=== PATIENT | male | born 1990 | race African-American/Black ===

== ENCOUNTER 2020-03-25 08:14 | Emergency (ER) | payer OTHER, SELFPAY ==
[2020-03-25 08:30] VITALS: BP 127/77; PULSE 86; RESP 16; TEMP 37; O2SAT 100
[2020-03-25 08:53] LABS: Basophils Percent Auto 0.8 % (0.2-1.2); Eosinophils Absolute Auto 0.3 K/mm3 (0-0.3); Eosinophils Percent Auto 7.5 % (0-4.4); Hematocrit 39.5 % (42.0-52.0); Hemoglobin 13.3 g/dL (14.0-18.0); Lymphocytes Percent Auto 43.9 % (18.3-44.2); Mean Corpuscular HGB Conc 33.7 g/dl (32-36); Mean Corpuscular Hemoglobin 29.8 pg (26-34); Mean Corpuscular Volume 88.4 fl (80-100); Mean Platelet Volume 10.3 fl (7.4-10.4); Monocytes Absolute Auto 0.4 K/mm3 (0.1-0.6); Monocytes Percent Auto 11.1 % (2.6-8.5); Neutrophils Absolute Auto 1.4 K/mm3 (1.3-6.7); Neutrophils Percent Auto 36.7 % (45.5-73.1); Platelet Count Result 219 k/mm3 (150-375); Red Blood Count 4.47 M/mm3 (4.6-6.20); Red Cell Distribution Width 13.2 % (11.5-14.5); White Blood Count 3.9 K/mm3 (4.5-10.0)
--- NOTE | 2020-03-25 09:02 | ED.ABDPAIN ---
HPI - Abdominal Pain General Chief Complaint: Abdominal Pain Stated Complaint: abd pain/vomiting Time Seen by Provider: 03/25/20 08:21 History of Present Illness HPI narrative: Patient is a 29-year-old male who presents ER with epigastric pain. Patient has had this for 5 days. He was seen at [facility] and diagnosed with low potassium after having some muscle cramping. They felt his potassium was low due to the fact that he had been vomiting earlier in the week. Reports she is having liquid yellow stools as well. Began having increased discomfort yesterday evening with nausea so he went to [place] but cannot be seen due to long wait time. He then decided to present here this morning. No fevers or chills or sweats. No known sick contacts. No loss of smell or taste. Related Data Allergies Allergy/AdvReac Type Severity Reaction Status Date / Time No Known Allergies Allergy Verified 03/25/20 08:59 Review of Systems Review of Systems: All systems reviewed & are unremarkable except as noted in HPI and below Constitutional: Constitutional: Denies chills, Denies fever(s) and Denies weakness ENT: Denies dizziness and Denies sore throat Gastrointestinal: Gastrointestinal: Reports abdominal pain, Denies bloating, Denies heartburn, Reports diarrhea, Reports nausea and Reports vomiting PMFSH Past Medical History Medical History (Updated 03/25/20 @ 10:39 by Klever Churchill MD) Healthy adult male Surgical History Surgical History (Updated 03/25/20 @ 09:04 by Klever Churchill MD) No history of previous surgery Social History Social History (Updated 03/25/20 @ 09:05 by Klever Churchill MD) Smoking status: Current every day smoker Gender identity (if verbalized by the patient): Male Exam Narrative: Exam Narrative: GENERAL: Well-appearing, well-nourished, and in no acute distress. HEAD: Normocephalic, atraumatic. CHEST: Clear to auscultation. No respiratory distress. HEART: Regular rate and rhythm. Normal peripheral pulses. ABDOMEN: Soft, nontender, nondistended, normal active bowel sounds. EXTREMITIES: Normal range of motion. No edema. SKIN: Warm, dry, no rash. NEURO: Alert and oriented x3. PSYCH: Normal mood and affect. Course Course Emergency Course: Hydrated, p.o. challenge, discharge home. Vital Signs Vital signs: Vital Signs Temperature 98.6 F 03/25/20 08:30 Pulse Rate 86 03/25/20 08:30 Respiratory Rate 16 03/25/20 08:30 Blood Pressure 127/77 03/25/20 08:30 Pulse Oximetry 100 03/25/20 08:30 Temperature 98.6 F 03/25/20 08:30 Pulse Rate 86 03/25/20 08:30 Respiratory Rate 16 03/25/20 08:30 Blood Pressure 127/77 03/25/20 08:30 Pulse Oximetry 100 03/25/20 08:30 MDM - Abdominal Pain Lab Data Result diagrams: 03/25/20 08:41 03/25/20 09:03 Labs: Lab Results 03/25/20 03/25/20 03/25/20 Range/Units 08:41 09:03 09:45 WBC 3.9 L (4.5-10.0) K/mm3 RBC 4.47 L (4.6-6.20) M/mm3 Hgb 13.3 L (14.0-18.0) g/dL Hct 39.5 L (42.0-52.0) % MCV 88.4 (80-100) fl MCH 29.8 (26-34) pg MCHC 33.7 (32-36) g/dl RDW 13.2 (11.5-14.5) % Plt Count 219 (150-375) k/mm3 MPV 10.3 (7.4-10.4) fl Immature Gran % (Auto) 0.0 (0-0.5) % Neut % (Auto) 36.7 L (45.5-73.1) % Lymph % (Auto) 43.9 (18.3-44.2) % [place] % (Auto) 11.1 H (2.6-8.5) % Eos % (Auto) 7.5 H (0-4.4) % Baso % (Auto) 0.8 (0.2-1.2) % Lymph # (Auto) 1.70 (0.9-3.2) K/mm3 [place] # (Auto) 0.4 (0.1-0.6) K/mm3 Eos # (Auto) 0.3 (0-0.3) K/mm3 Baso # (Auto) 0.0 (0.0-0.1) K/mm3 Abs Immat Gran (auto) 0.00 (0.00-0.031) K/mm3 Absolute Neuts (auto) 1.4 (1.3-6.7) K/mm3 Absolute Nucleated RBC 0.0 (0.0-0.012) K/mm3 Nucleated RBC % 0.0 (0.0-0.2) % Sodium 141 (137-145) mmol/L Potassium 3.8 (3.4-5.0) mmol/L Chloride 105 (98-107) mmol/L Carbon Dioxide 30 (22-30) mmol/L Anion G
[2020-03-25] MEDS: SODIUM CHLORIDE 0.9% IV 1,000 ML 999 ML IV CONT (09:05)
[2020-03-25] MEDS: ONDANSETRON INJ 4 MG/2 ML VIAL IV PUSH (09:06)
[2020-03-25 09:40] LABS: Alanine Aminotransferase 10 U/L (4-50); Albumin Level 4.2 g/dL (3.5-5.1); Alkaline Phosphatase 44 U/L (38-126); Anion Gap 6 mmol/L (8-16); Aspartate Amino Transferase 22 U/L (17-59); Bilirubin,Total 0.6 mg/dL (0.2-1.3); Blood Urea Nitrogen 13 mg/dL (9-20); Calcium 9.2 mg/dL (8.4-10.2); Carbon Dioxide 30 mmol/L (22-30); Chloride 105 mmol/L (98-107); Estimated CRCL calculation 120 ml/min; Estimated Glomerular Filt Rate > 60; Glucose 100 mg/dL (75-110); Lipase 84 U/L (23-300); Potassium 3.8 mmol/L (3.4-5.0); Sodium 141 mmol/L (137-145)
[2020-03-25 10:00] LABS: Add Urine Microscopic? YES; Amorphous Sediment Urine Few; Appearance Urine Cloudy (Clear); Bacteria Urine Trace /hpf; Bilirubin Urine Negative (Negative); Blood Urine Negative (Negative); Color Urine Yellow (Yellow); Glucose Urine UA Negative (Negative); Ketones Urine Negative (Negative); Leukocyte Esterase Ur Negative LEU/UL (Negative); Mucus Urine Moderate /lpf; Nitrate Urine Negative (Negative); Protein Urine 2+ mg/dL (Negative); Specific Grav Ur 1.026 (1.001-1.035); Squamous Epithelial Cell Urine Rare /hpf (Few); Urobilinogen Urine Negative mg/dL (<2.0)
[2020-03-25 10:05] VITALS: BP 117/69; PULSE 63; RESP 18; O2SAT 99
--- NOTE | 2020-03-25 10:20 | PC.NURSE ---
Pt states abd pain is gone, and no longer has nausea. Pt given water po.
--- NOTE | 2020-03-25 10:42 | PC.NURSE ---
Pt has kept water down, and states no longer has abdominal pain. Dr. Churchill made aware.
== END 2020-03-25 10:51 | disposition home or self-care (01) ==
PROVIDERS: Emergency Provider Emergency Medicine
DX: K52.9 Noninfective gastroenteritis and colitis, unspecified (principal); F17.200 Nicotine dependence, unspecified, uncomplicated
CPT/HCPCS: 11720; 36415; 80053; 81001; 83690; 85025; 96361; 96374; 99284; J2405; J7030

== ENCOUNTER 2020-03-25 18:08 | Emergency (ER) | payer OTHER, SELFPAY ==
--- NOTE | ~2020-03-25 | CT_ITS ---
EXAMINATION: CT abdomen pelvis w con DATE: 03/25/2020 20:10 INDICATION: Abdominal pain. Nausea and vomiting. TECHNIQUE: Computed tomography (CT) of the abdomen and pelvis was performed with 100 mL Omnipaque 350 intravenous contrast. Automated exposure control and iterative reconstruction technique were employe d. The dose-length product was 230.79 mGy-cm. COMPARISON: None. FINDINGS: The visualized portions of the lung bases are clear without pneumonia or pleural effusion. The heart size is normal. No pericardial effusion. The liver, gallbladder, spleen, pancreas, adrenal glands, and kidneys are normal. There are no dilated loops of bowel. The appendix is normal. There ar e no pathologically enlarged lymph nodes. There is no free intraperitoneal fluid. The bones are unre markable. IMPRESSION: 1. No etiology for the patient's symptoms. Reviewed, dictated and finalized at location A. H ASSOCIATE
[2020-03-25 18:26] VITALS: BP 123/74; PULSE 74; RESP 16; TEMP 36.3; O2SAT 100
[2020-03-25 19:02] LABS: Basophils Percent Auto 0.7 % (0.2-1.2); Eosinophils Absolute Auto 0.1 K/mm3 (0-0.3); Hematocrit 38.9 % (42.0-52.0); Hemoglobin 13.2 g/dL (14.0-18.0); Immature Granulocyte Absolute 0.01 K/mm3 (0.00-0.031); Immature Granulocyte Percent A 0.2 % (0-0.5); Lymphocytes Absolute Auto 1.49 K/mm3 (0.9-3.2); Lymphocytes Percent Auto 27.3 % (18.3-44.2); Mean Corpuscular HGB Conc 33.9 g/dl (32-36); Mean Corpuscular Hemoglobin 29.9 pg (26-34); Mean Corpuscular Volume 88.2 fl (80-100); Mean Platelet Volume 9.8 fl (7.4-10.4); Monocytes Absolute Auto 0.4 K/mm3 (0.1-0.6); Monocytes Percent Auto 8.1 % (2.6-8.5); Neutrophils Absolute Auto 3.4 K/mm3 (1.3-6.7); Neutrophils Percent Auto 61.7 % (45.5-73.1); Platelet Count Result 196 k/mm3 (150-375); Red Blood Count 4.41 M/mm3 (4.6-6.20); White Blood Count 5.5 K/mm3 (4.5-10.0)
[2020-03-25] MEDS: diphenhydrAMINE HCl INJ 50 MG/ML VIAL 25 MG IV PUSH (19:04)
[2020-03-25] MEDS: FAMOTIDINE 20 MG/2 ML VIAL IV PUSH (19:05)
[2020-03-25] MEDS: METOCLOPRAMIDE HCL INJ 10 MG/2 ML VIAL IV PUSH (19:05)
[2020-03-25] MEDS: SODIUM CHLORIDE 0.9% IV 1,000 ML 999 ML IV CONT (19:05)
[2020-03-25 19:17] LABS: Alanine Aminotransferase 11 U/L (4-50); Albumin Level 4.4 g/dL (3.5-5.1); Alkaline Phosphatase 46 U/L (38-126); Anion Gap 6 mmol/L (8-16); Aspartate Amino Transferase 22 U/L (17-59); Bilirubin,Total 0.8 mg/dL (0.2-1.3); Blood Urea Nitrogen 10 mg/dL (9-20); Calcium 9.2 mg/dL (8.4-10.2); Carbon Dioxide 28 mmol/L (22-30); Chloride 107 mmol/L (98-107); Estimated CRCL calculation 136 ml/min; Estimated Glomerular Filt Rate > 60; Glucose 97 mg/dL (75-110); Lipase 47 U/L (23-300); Potassium 4.2 mmol/L (3.4-5.0); Sodium 141 mmol/L (137-145)
--- NOTE | 2020-03-25 19:22 | ED.GENADULT ---
HPI - General Adult General Chief complaint: Nausea/Vomiting/Diarrhea Stated complaint: N/V X1D 2ND VISIT TODAY Time Seen by Provider: 03/25/20 18:37 Source: patient Mode of arrival: ambulatory Limitations: no limitations History of Present Illness HPI narrative: Patient is a 29-year-old male who returns back to emergency department after being evaluated this morning for nausea and vomiting diarrhea had unremarkable evaluation was sent home with his nausea medication notes that he continues to have nausea and vomiting despite the medication with discomfort in the upper abdomen patient denies sent contacts patient on arrival with family appears uncomfortable but in no distress Related Data Allergies Allergy/AdvReac Type Severity Reaction Status Date / Time No Known Allergies Allergy Verified 03/25/20 08:59 Review of Systems Review of Systems: All systems reviewed & are unremarkable except as noted in HPI and below PMFSH Past Medical History Medical History Healthy adult male Surgical History Surgical History No history of previous surgery Social History Social History Smoking status: Current every day smoker Gender identity (if verbalized by the patient): Male Exam Narrative: Exam Narrative: GENERAL: Well-appearing, well-nourished, and in no acute distress. HEAD: Normocephalic, atraumatic. EYES: PERRLA and EOMI. ENT: Nares clear, no rhinorrhea or epistaxis. Mucous membranes moist. CHEST: Clear to auscultation. No respiratory distress. No wheezes rales or rhonchi HEART: Regular rate and rhythm. No murmur heard. Normal peripheral pulses. ABDOMEN: Soft, tenderness in the upper quadrants of the abdomen no rebound or guarding, nondistended, normal active bowel sounds. EXTREMITIES: Normal range of motion. No edema. SKIN: Warm, dry, no rash. NEURO: No focal deficits. Alert and oriented x3. PSYCH: Normal mood and affect. Course Course Emergency Course: Patient in the room in no distress aware of case findings treatment plan diagnosis agreeing to follow-up as instructed with primary care patient with no high risk changes in the blood work or imaging patient able to tolerate p.o. intake Vital Signs Vital signs: Vital Signs Temperature 97.4 F L 03/25/20 18:26 Pulse Rate 74 03/25/20 18:26 Respiratory Rate 16 03/25/20 18:26 Blood Pressure 123/74 03/25/20 18:26 Pulse Oximetry 100 03/25/20 18:26 Temperature 97.4 F L 03/25/20 18:26 Pulse Rate 74 03/25/20 18:26 Respiratory Rate 16 03/25/20 18:26 Blood Pressure 123/74 03/25/20 18:26 Pulse Oximetry 100 03/25/20 18:26 Medical Decision Making MDM Narrative Medical decision making narrative: Patient with vomiting of unknown etiology afebrile nontoxic-appearing in no distress Vital Signs Vital Signs: Vital Signs Temperature 97.4 F L 03/25/20 18:26 Pulse Rate 74 03/25/20 18:26 Respiratory Rate 16 03/25/20 18:26 Blood Pressure 123/74 03/25/20 18:26 Pulse Oximetry 100 03/25/20 18:26 Temperature 97.4 F L 03/25/20 18:26 Pulse Rate 74 03/25/20 18:26 Respiratory Rate 16 03/25/20 18:26 Blood Pressure 123/74 03/25/20 18:26 Pulse Oximetry 100 03/25/20 18:26 Lab Data Result diagrams: 03/25/20 18:55 03/25/20 18:55 Labs: Lab Results 03/25/20 03/25/20 Range/Units 18:55 18:55 WBC 5.5 (4.5-10.0) K/mm3 RBC 4.41 L (4.6-6.20) M/mm3 Hgb 13.2 L (14.0-18.0) g/dL Hct 38.9 L (42.0-52.0) % MCV 88.2 (80-100) fl MCH 29.9 (26-34) pg MCHC 33.9 (32-36) g/dl RDW 13.0 (11.5-14.5) % Plt Count 196 (150-375) k/mm3 MPV 9.8 (7.4-10.4) fl Immature Gran % (Auto) 0.2 (0-0.5) % Neut % (Auto) 61.7 (45.5-73.1) % Lymph % (Auto) 27.3 (18.3-44.2) % [place] % (Auto) 8.1 (2.6-8.5)
[2020-03-25 20:44] VITALS: BP 124/76; PULSE 75; RESP 18; O2SAT 100
== END 2020-03-25 20:45 | disposition home or self-care (01) ==
PROVIDERS: Emergency Medicine Emergency Medical Services; Emergency Provider Emergency Medicine
DX: R11.2 Nausea with vomiting, unspecified (principal); F17.200 Nicotine dependence, unspecified, uncomplicated
CPT/HCPCS: 11720; 36415; 74177; 80053; 81001; 83690; 85025; 96361; 96374; 96375; 99284; J1200; J2405; J2765; J7030; Q9967

== ENCOUNTER 2020-04-03 13:31 | Emergency (ER) | payer OTHER, SELFPAY ==
[2020-04-03 13:28] VITALS: BP 107/67; PULSE 64; RESP 18; TEMP 37.2; O2SAT 100
--- NOTE | 2020-04-03 13:54 | ED.GENADULT ---
HPI - General Adult General Chief complaint: Abdominal Pain <Kyle Naranjo PA-C - Last Filed: 04/03/20 15:49> Stated complaint: abd cramping <Kyle Naranjo PA-C - Last Filed: 04/03/20 15:49> Time Seen by Provider: 04/03/20 13:36 <Kyle Naranjo PA-C - Last Filed: 04/03/20 15:49> Source: patient, EMS and old records reviewed <Kyle Naranjo PA-C - Last Filed: 04/03/20 15:49> Mode of arrival: EMS <Kyle Naranjo PA-C - Last Filed: 04/03/20 15:49> Limitations: no limitations <Kyle Naranjo PA-C - Last Filed: 04/03/20 15:49> History of Present Illness HPI narrative: Patient is a 29-year-old male who presents to emergency department for evaluation of continued abdominal pain nausea and vomiting patient was seen at [place] this morning had evaluation given fluids discharged home had recurrence of symptoms came back but was not seen called an ambulance and was brought to [place] patient had had a similar occurrence over a week ago and evaluation and imaging which was unremarkable was discharged home with medication. Patient notes vomiting and generalized abdominal pain denies any diarrhea URI symptoms or other complaints and does not appear uncomfortable or in distress upon arrival <Kyle Naranjo PA-C - Last Filed: 04/03/20 15:49> Related Data Home medications: Home Medications Medication Instructions Recorded Confirmed dicyclomine 10 mg PO TID PRN 04/03/20 <Kyle Naranjo PA-C - Last Filed: 04/03/20 15:49> Allergies/adverse reactions: Allergies Allergy/AdvReac Type Severity Reaction Status Date / Time acetaminophen [From Tylenol] Allergy Swelling Verified 04/03/20 13:34 <Kyle Naranjo PA-C - Last Filed: 04/03/20 15:49> Review of Systems Review of Systems: All systems reviewed & are unremarkable except as noted in HPI and below <Kyle Naranjo PA-C - Last Filed: 04/03/20 15:49> PMFSH Past Medical History Medical History: Medical History Healthy adult male <Kyle Naranjo PA-C - Last Filed: 04/03/20 15:49> Surgical History Surgical History: Surgical History No history of previous surgery <Kyle Naranjo PA-C - Last Filed: 04/03/20 15:49> Social History Social History: Social History Smoking status: Current every day smoker Gender identity (if verbalized by the patient): Male <Kyle Naranjo PA-C - Last Filed: 04/03/20 15:49> Exam Narrative: Exam Narrative: GENERAL: Well-appearing, well-nourished, and in no acute distress. HEAD: Normocephalic, atraumatic. EYES: PERRLA and EOMI. ENT: Nares clear, no rhinorrhea or epistaxis. Mucous membranes moist. CHEST: Clear to auscultation. No respiratory distress. No wheezes rales or rhonchi HEART: Regular rate and rhythm. No murmur heard. Normal peripheral pulses. ABDOMEN: Soft, generalized tenderness, nondistended EXTREMITIES: Normal range of motion. No edema. SKIN: Warm, dry, no rash. NEURO: No focal deficits. Alert and oriented x3. PSYCH: Normal mood and affect. <Kyle Naranjo PA-C - Last Filed: 04/03/20 15:49> Course Course Emergency Course: Patient in the room no distress feeling better will follow with GI and primary care was given medications with resolution of symptoms <Kyle Naranjo PA-C - Last Filed: 04/03/20 15:49> Vital Signs Vital signs: Vital Signs Temperature 99 F 04/03/20 13:28 Pulse Rate 64 04/03/20 13:28 Respiratory Rate 18 04/03/20 13:28 Blood Pressure 107/67 04/03/20 13:28 Pulse Oximetry 100 04/03/20 13:28 Temperature 99 F 04/03/20 14:25 Pulse Rate 77 04/03/20 15:20 Respiratory Rate 18 04/03/20 15:20 Blood Pressure 104/63 04/03/20 15:20 Pulse Oximetry 100 04/03/20 15:20 <Kyle Reid
[2020-04-03] MEDS: KETOROLAC 30 MG/ML VIAL (*BKC) IV PUSH (13:55)
[2020-04-03] MEDS: SODIUM CHLORIDE 0.9% IV 1,000 ML 999 ML IV CONT (13:55)
[2020-04-03] MEDS: FAMOTIDINE 20 MG/2 ML VIAL IV PUSH (13:55)
[2020-04-03] MEDS: ONDANSETRON INJ 4 MG/2 ML VIAL IV PUSH (13:55)
[2020-04-03 14:07] LABS: Basophils Percent Auto 0.7 % (0.2-1.2); Eosinophils Absolute Auto 0.2 K/mm3 (0-0.3); Eosinophils Percent Auto 2.9 % (0-4.4); Hematocrit 38.8 % (42.0-52.0); Hemoglobin 13.1 g/dL (14.0-18.0); Immature Granulocyte Absolute 0.01 K/mm3 (0.00-0.031); Immature Granulocyte Percent A 0.2 % (0-0.5); Lymphocytes Absolute Auto 1.59 K/mm3 (0.9-3.2); Lymphocytes Percent Auto 27.2 % (18.3-44.2); Mean Corpuscular HGB Conc 33.8 g/dl (32-36); Mean Corpuscular Hemoglobin 30.3 pg (26-34); Mean Corpuscular Volume 89.6 fl (80-100); Mean Platelet Volume 9.5 fl (7.4-10.4); Monocytes Absolute Auto 0.4 K/mm3 (0.1-0.6); Monocytes Percent Auto 7.4 % (2.6-8.5); Neutrophils Absolute Auto 3.6 K/mm3 (1.3-6.7); Neutrophils Percent Auto 61.6 % (45.5-73.1); Platelet Count Result 225 k/mm3 (150-375); Red Blood Count 4.33 M/mm3 (4.6-6.20); Red Cell Distribution Width 13.2 % (11.5-14.5); White Blood Count 5.8 K/mm3 (4.5-10.0)
[2020-04-03] MEDS: LORazepam INJ (*CRX) 2 MG/ML VIAL 1 MG IV PUSH (14:07)
[2020-04-03 14:09] LABS: Add Urine Microscopic? NO; Appearance Urine Clear (Clear); Bilirubin Urine Negative (Negative); Blood Urine Negative (Negative); Color Urine Straw (Yellow); Glucose Urine UA Negative (Negative); Ketones Urine Negative (Negative); Leukocyte Esterase Ur Negative LEU/UL (Negative); Nitrate Urine Negative (Negative); Protein Urine Negative (Negative); Specific Grav Ur 1.012 (1.001-1.035); Urobilinogen Urine Negative mg/dL (<2.0)
[2020-04-03 14:12] LABS: Alanine Aminotransferase 11 U/L (4-50); Alkaline Phosphatase 40 U/L (38-126); Anion Gap 3 mmol/L (8-16); Aspartate Amino Transferase 21 U/L (17-59); Bilirubin,Total 0.8 mg/dL (0.2-1.3); Blood Urea Nitrogen 7 mg/dL (9-20); Carbon Dioxide 27 mmol/L (22-30); Chloride 110 mmol/L (98-107); Estimated CRCL calculation 136 ml/min; Estimated Glomerular Filt Rate > 60; Glucose 98 mg/dL (75-110); Lipase 46 U/L (23-300); Potassium 4.2 mmol/L (3.4-5.0); Sodium 140 mmol/L (137-145)
[2020-04-03 14:25] VITALS: TEMP 37.2
[2020-04-03 15:20] VITALS: BP 104/63; PULSE 77; RESP 18; O2SAT 100
== END 2020-04-03 16:01 | disposition home or self-care (01) ==
PROVIDERS: Emergency Medicine Emergency Medical Services; Emergency Provider General Practice
DX: R10.9 Unspecified abdominal pain (principal); F17.200 Nicotine dependence, unspecified, uncomplicated
CPT/HCPCS: 36415; 80053; 81003; 83690; 85025; 96361; 96374; 96375; 99284; J1885; J2060; J2405; J7030

== ENCOUNTER 2020-08-09 07:50 | Emergency (ER) | payer OTHER, SELFPAY ==
--- NOTE | 2020-08-09 08:09 | ED.NAVMDI ---
HPI - Nausea/Vomiting/Diarrhea General Chief complaint: Abdominal Pain Stated complaint: abd pain Time Seen by Provider: 08/09/20 07:55 Source: patient Mode of arrival: ambulatory Limitations: no limitations History of Present Illness HPI Narrative: Patient is a 30-year-old male complaining of nausea vomiting accompanied by abdominal cramping x2 days. Patient states that he was seen at [place] last night for the same complaints. Patient describes his vomitus is nonbilious nonbloody. Patient claims that he has been having the symptoms on and off for the past 6 months and was seen here twice for it. Patient admits to smoking marijuana regularly. Related Data Home Medications Medication Instructions Recorded Confirmed dicyclomine 10 mg PO TID PRN 04/03/20 Allergies Allergy/AdvReac Type Severity Reaction Status Date / Time acetaminophen [From Tylenol] Allergy Swelling Verified 04/03/20 13:34 Review of Systems Review of Systems: All systems reviewed & are unremarkable except as noted in HPI and below Constitutional: Constitutional: Denies body ache(s), Denies chills, Denies excessive sweating, Denies fatigue, Denies fever(s), Denies headache(s), Denies lethargy, Denies malaise, Denies weakness and Denies weight loss Eyes: Eyes: Denies blurry vision, Denies change in vision and Denies loss of vision ENT: Denies dizziness, Denies ear discharge, Denies headache(s), Denies lip swelling, Denies epistaxis, Denies nasal congestion, Denies neck pain, Denies throat swelling and Denies tongue swelling Cardiovascular: Cardiovascular: Denies chest pain, Denies chest pain at rest, Denies chest pain with activity, Denies diaphoresis, Denies rapid heart rate, Denies edema, Denies irregular heart rhythm, Denies lightheadedness, Denies palpitations, Denies dyspnea and Denies dyspnea on exertion Respiratory: Respiratory: Denies chest congestion, Denies cough, Denies hemoptysis, Denies dyspnea and Denies dyspnea on exertion Gastrointestinal: Gastrointestinal: Denies melena, Denies hematochezia, Denies diarrhea and Denies hematemesis Musculoskeletal: Musculoskeletal: Denies abnormal gait, Denies deformity, Denies joint swelling, Denies limited range of motion, Denies neck pain and Denies numbness Neurologic: Denies Abnormal speech present, Denies abnormal gait, Denies confusion, Denies dizziness, Denies headache(s), Denies focal weakness, Denies loss of vision, Denies numbness, Denies Other visual disturbances, Denies Sensory deficit (Neuro) and Denies weakness Psychiatric: Psychiatric: Denies confusion, Denies depression, Denies auditory hallucinations, Denies homicidal ideation and Denies suicidal ideation Endocrine: Endocrine: Denies cold intolerance, Denies excessive sweating, Denies fatigue, Denies heat intolerance and Denies palpitations Hematologic/Lymphatic: Hematologic/Lymphatic: Denies easy bleeding and Denies easy bruising Allergic/Immunologic: Allergic/Immunologic: Denies lip swelling, Denies throat swelling and Denies tongue swelling PMFSH Past Medical History Medical History Healthy adult male Surgical History Surgical History No history of previous surgery Social History Social History Smoking status: Current every day smoker Gender identity (if verbalized by the patient): Male Comments Past medical history: None Family history: Negative for diabetes or hypertension Social history: Non-smoker no EtOH use, positive for drug use: Marijuana Exam Const: General: cooperative, healthy appearing, comfortable, no acute distress, well developed, alert and awake; No confusion Orientation/consciousness: oriented to person, oriented to place, oriented to time, patient oriented x3 and No confusion Limitations: no limitations HENMT: Head: normal to inspect
[2020-08-09 08:17] LABS: Basophils Absolute Auto 0.1 K/mm3 (0.0-0.1); Basophils Percent Auto 1.6 % (0.2-1.2); Eosinophils Absolute Auto 0.4 K/mm3 (0-0.3); Eosinophils Percent Auto 8.6 % (0-4.4); Hematocrit 41.3 % (42.0-52.0); Hemoglobin 14.2 g/dL (14.0-18.0); Lymphocytes Percent Auto 51.3 % (18.3-44.2); Mean Corpuscular HGB Conc 34.4 g/dl (32-36); Mean Corpuscular Hemoglobin 29.7 pg (26-34); Mean Corpuscular Volume 86.4 fl (80-100); Mean Platelet Volume 9.5 fl (7.4-10.4); Monocytes Absolute Auto 0.5 K/mm3 (0.1-0.6); Monocytes Percent Auto 10.5 % (2.6-8.5); Neutrophils Absolute Auto 1.2 K/mm3 (1.3-6.7); Platelet Count Result 205 k/mm3 (150-375); Red Blood Count 4.78 M/mm3 (4.6-6.20); Red Cell Distribution Width 13.2 % (11.5-14.5); White Blood Count 4.3 K/mm3 (4.5-10.0)
[2020-08-09] MEDS: SODIUM CHLORIDE 0.9% IV 1,000 ML 999 ML IV CONT ×2 (08:20→09:47)
[2020-08-09] MEDS: PROMETHAZINE HCL 25 MG/ML AMPUL 12.5 MG IV PUSH (08:21)
[2020-08-09] MEDS: ONDANSETRON INJ 4 MG/2 ML VIAL IV PUSH (08:21)
[2020-08-09 08:28] LABS: Alanine Aminotransferase 15 U/L (4-50); Albumin Level 4.7 g/dL (3.5-5.1); Alkaline Phosphatase 46 U/L (38-126); Anion Gap 7 mmol/L (8-16); Aspartate Amino Transferase 28 U/L (17-59); Bilirubin,Total 1.5 mg/dL (0.2-1.3); Blood Urea Nitrogen 16 mg/dL (9-20); Calcium 9.4 mg/dL (8.4-10.2); Carbon Dioxide 25 mmol/L (22-30); Chloride 108 mmol/L (98-107); Estimated Glomerular Filt Rate > 60; Glucose 87 mg/dL (75-110); Lipase 60 U/L (23-300); Potassium 3.4 mmol/L (3.4-5.0); Sodium 140 mmol/L (137-145)
[2020-08-09 08:30] VITALS: BP 98/53; PULSE 60; RESP 14; TEMP 36.7; O2SAT 99
[2020-08-09 08:57] VITALS: BP 100/61; PULSE 51; RESP 14; O2SAT 99
[2020-08-09 09:30] VITALS: BP 92/66; PULSE 61; RESP 14; O2SAT 99
[2020-08-09 10:00] VITALS: BP 105/57; PULSE 77; RESP 14; O2SAT 99
[2020-08-09 10:30] VITALS: BP 108/73; PULSE 56; RESP 14; O2SAT 99
--- NOTE | 2020-08-12 08:17 | PC.NURSE ---
LATE ENTRY This note is being entered to document information to the patient's record. The following information was omitted on [08/09/20], by [Domingo Case] LUISA stop time 0038.
== END 2020-08-09 10:40 | disposition home or self-care (01) ==
PROVIDERS: Emergency Provider Emergency Medicine; PCP Internal Medicine Infectious Disease
DX: R11.15 Cyclical vomiting syndrome unrelated to migraine (principal); F17.200 Nicotine dependence, unspecified, uncomplicated
CPT/HCPCS: 36415; 80053; 83690; 85025; 96361; 96374; 96375; 99284; J2405; J2550; J7030

== ENCOUNTER 2020-11-03 23:45 | Emergency (ER) | payer OTHER, SELFPAY ==
[2020-11-03 23:46] VITALS: BP 109/74; PULSE 105; RESP 18; TEMP 36.1; O2SAT 100
--- NOTE | 2020-11-03 23:55 | ED.DENTAL ---
HPI - Dental/Oral General Chief complaint: Dental/Oral Stated complaint: headache and toothache Time Seen by Provider: 11/03/20 23:54 Source: patient Mode of arrival: ambulatory Limitations: no limitations History of Present Illness HPI Narrative: 30-year-old with no major medical problems here with complaints of dental pain since last 4 hours. He states that he is having headache from the pain. He denies any fever or chills. MD Complaint: tooth pain Location: Tooth # (17) Onset (ago): hour(s) (4) Duration: constant Severity: moderate Relieving factors: nothing Treatment prior to arrival: none Related Data Allergies Allergy/AdvReac Type Severity Reaction Status Date / Time acetaminophen [From Tylenol] Allergy Swelling Verified 11/03/20 23:56 Review of Systems Review of Systems: All systems reviewed & are unremarkable except as noted in HPI and below Constitutional: Constitutional: Reports no additional constitutional complaints Eyes: Eyes: Reports no additional eye complaints ENT: Reports as per HPI Respiratory: Respiratory: Reports no additional respiratory complaints Gastrointestinal: Gastrointestinal: Reports no additional gastrointestinal complaints [facility] Past Medical History Medical History Healthy adult male Surgical History Surgical History No history of previous surgery Social History Social History Smoking status: Current every day smoker Gender identity (if verbalized by the patient): Male Sexual Orientation (if Verbalized by the Patient): Straight or Heterosexual Exam Narrative: Exam Narrative: GENERAL: Well-appearing, well-nourished, and in no acute distress. HEAD: Normocephalic, atraumatic. EYES: PERRLA and EOMI. ENT: Nares clear, no rhinorrhea or epistaxis. Mucous membranes moist. Dental caries #17 NECK: Supple. CHEST: Clear to auscultation. No respiratory distress. HEART: Regular rate and rhythm. No murmur heard. Normal peripheral pulses. EXTREMITIES: Normal range of motion. No edema. SKIN: Warm, dry, no rash. NEURO: No focal deficits. Alert and oriented x3. PSYCH: Normal mood and affect. Course Vital Signs Vital signs: Vital Signs Temperature 36.1 C L 11/03/20 23:46 Pulse Rate 105 H 11/03/20 23:46 Respiratory Rate 18 11/03/20 23:46 Blood Pressure 109/74 11/03/20 23:46 Pulse Oximetry 100 11/03/20 23:46 Temperature 36.1 C L 11/03/20 23:46 Pulse Rate 105 H 11/03/20 23:46 Respiratory Rate 18 11/03/20 23:46 Blood Pressure 109/74 11/03/20 23:46 Pulse Oximetry 100 11/03/20 23:46 Discharge Plan Discharge Clinical Impression: Dental caries Patient Disposition: Home, Self-Care Condition: Stable Instructions: Antibiotic Form, Toothache (ED) Prescriptions: New amoxicillin 875 mg tablet 875 mg PO Q12H Qty: 20 RF: 0 tramadol [Ultram] 50 mg tablet 50 mg PO Q6H PRN (Reason: pain) Qty: 20 RF: 0 Follow-up/Referrals: Lisa,Candi Quick [Primary Care Provider] - Stand Alone Forms: Work/School Release IP Time of Disposition: 00:03
[2020-11-04] MEDS: traMADol HCL (*CRX) 50 MG TABLET PO (00:02)
== END 2020-11-04 00:13 | disposition home or self-care (01) ==
LOC: ANHED 11-04 00:29
PROVIDERS: Emergency Provider Family Medicine; PCP Family Medicine
DX: K02.9 Dental caries, unspecified (principal); F17.210 Nicotine dependence, cigarettes, uncomplicated
CPT/HCPCS: 99283; A9270

== ENCOUNTER 2020-11-04 20:40 | Emergency (ER) | payer OTHER, SELFPAY ==
--- NOTE | ~2020-11-04 | CT_ITS ---
EXAMINATION: CT abdomen pelvis wo con DATE: 11/04/2020 22:26 INDICATION: Right flank pain TECHNIQUE: Computed tomography (CT) of the abdomen and pelvis was performed without intravenous contr ast. The dose-length product was 176.31 mGy-cm. Automated exposure control and iterative reconstructi on technique were employed. COMPARISON: CT dated 03/25/2020 FINDINGS: Lung bases are unremarkable. Heart size normal. No significant pleural or pericardial effus ion. No significant vascular abnormality. No lymphadenopathy. Nonobstructive bowel gas pattern. Jeanette l appendix. No there is a punctate 2 mm left renal stone. No ureteral stones or hydronephrosis. Bladd er is unremarkable. No acute osseous abnormality. IMPRESSION: 1. No acute abdominal abnormality. 2: Nonobstructing left nephrolithiasis. Reviewed, dictated and finalized at location A.
[2020-11-04 21:00] VITALS: BP 125/61; PULSE 64; RESP 18; TEMP 37; O2SAT 100
[2020-11-04 21:09] LABS: Basophils Percent Auto 0.7 % (0.2-1.2); Eosinophils Absolute Auto 0.4 K/mm3 (0-0.3); Eosinophils Percent Auto 8.8 % (0-4.4); Hematocrit 41.2 % (42.0-52.0); Hemoglobin 13.5 g/dL (14.0-18.0); Immature Granulocyte Absolute 0.01 K/mm3 (0.00-0.031); Immature Granulocyte Percent A 0.2 % (0-0.5); Lymphocytes Absolute Auto 1.63 K/mm3 (0.9-3.2); Lymphocytes Percent Auto 37.9 % (18.3-44.2); Mean Corpuscular HGB Conc 32.8 g/dl (32-36); Mean Corpuscular Hemoglobin 29.5 pg (26-34); Mean Corpuscular Volume 90.2 fl (80-100); Mean Platelet Volume 9.4 fl (7.4-10.4); Monocytes Absolute Auto 0.4 K/mm3 (0.1-0.6); Monocytes Percent Auto 10.2 % (2.6-8.5); Neutrophils Absolute Auto 1.8 K/mm3 (1.3-6.7); Neutrophils Percent Auto 42.2 % (45.5-73.1); Platelet Count Result 198 k/mm3 (150-375); Red Blood Count 4.57 M/mm3 (4.6-6.20); White Blood Count 4.3 K/mm3 (4.5-10.0)
[2020-11-04 21:19] LABS: Alanine Aminotransferase 11 U/L (4-50); Albumin Level 4.7 g/dL (3.5-5.1); Alkaline Phosphatase 42 U/L (38-126); Anion Gap 10 mmol/L (8-16); Aspartate Amino Transferase 21 U/L (17-59); Bilirubin,Total 0.8 mg/dL (0.2-1.3); Blood Urea Nitrogen 12 mg/dL (9-20); Calcium 9.5 mg/dL (8.4-10.2); Carbon Dioxide 25 mmol/L (22-30); Chloride 105 mmol/L (98-107); Estimated Glomerular Filt Rate > 60; Glucose 85 mg/dL (75-110); Lipase 45 U/L (23-300); Potassium 3.9 mmol/L (3.4-5.0); Sodium 140 mmol/L (137-145)
--- NOTE | 2020-11-04 22:16 | ED.GENADULT ---
HPI - General Adult General Chief complaint: Abdominal Pain Stated complaint: back/abd pain Time Seen by Provider: 11/04/20 22:03 History of Present Illness HPI narrative: Patient 30-year-old gentleman who presents the emergency department chief complaint of right flank pain. The patient reports that he started having flank pain today states that sharp radiates around to the right lower quadrant reports it is not worsened by anything nor is it improved by anything. Patient reports he was seen last night in the emergency department for a tooth infection and was given an antibiotic and started on tramadol. The patient reports the tramadol makes his stomach feel a little upset. Patient denies vomiting denies diarrhea. Related Data Allergies Allergy/AdvReac Type Severity Reaction Status Date / Time acetaminophen [From Tylenol] Allergy Swelling Verified 11/04/20 21:03 Review of Systems Review of Systems: Narrative: A 10 system review of systems was completed on the patient and is negative except for what is stated in the HPI. Nursing and ancillary documentation was reviewed. [facility] Past Medical History Medical History Healthy adult male Surgical History Surgical History No history of previous surgery Social History Social History Smoking status: Current every day smoker Gender identity (if verbalized by the patient): Male Exam Narrative: Exam Narrative: GENERAL: Well-appearing, well-nourished, and in no acute distress. HEAD: Normocephalic, atraumatic. EYES: PERRLA and EOMI. ENT: Nares clear, no rhinorrhea or epistaxis. Mucous membranes moist. NECK: Supple. CHEST: Clear to auscultation. No respiratory distress. HEART: Regular rate and rhythm. No murmur heard. Normal peripheral pulses. ABDOMEN: Soft, nontender, nondistended, normal active bowel sounds. EXTREMITIES: Normal range of motion. No edema. SKIN: Warm, dry, no rash. NEURO: No focal deficits. Alert and oriented x3. PSYCH: Normal mood and affect. Course Vital Signs Vital signs: Vital Signs Temperature 37.0 C 11/04/20 21:00 Pulse Rate 64 11/04/20 21:00 Respiratory Rate 18 07/08/21 21:00 Blood Pressure 125/61 11/04/20 21:00 Pulse Oximetry 100 11/04/20 21:00 Temperature 37.0 C 11/04/20 21:00 Pulse Rate 64 11/04/20 21:00 Respiratory Rate 18 11/04/20 21:00 Blood Pressure 125/61 11/04/20 21:00 Pulse Oximetry 100 11/04/20 21:00 Medical Decision Making Vital Signs Vital Signs: Vital Signs Temperature 37.0 C 11/04/20 21:00 Pulse Rate 64 11/04/20 21:00 Respiratory Rate 18 11/04/20 21:00 Blood Pressure 125/61 11/04/20 21:00 Pulse Oximetry 100 11/04/20 21:00 Temperature 37.0 C 11/04/20 21:00 Pulse Rate 64 11/04/20 21:00 Respiratory Rate 18 11/04/20 21:00 Blood Pressure 125/61 11/04/20 21:00 Pulse Oximetry 100 11/04/20 21:00 Lab Data Result diagrams: 11/04/20 21:04 11/04/20 21:04 Labs: Lab Results 11/04/20 11/04/20 Range/Units 21:04 21:04 WBC 4.3 L (4.5-10.0) K/mm3 RBC 4.57 L (4.6-6.20) M/mm3 Hgb 13.5 L (14.0-18.0) g/dL Hct 41.2 L (42.0-52.0) % MCV 90.2 (80-100) fl MCH 29.5 (26-34) pg MCHC 32.8 (32-36) g/dl RDW 13.0 (11.5-14.5) % Plt Count 198 (150-375) k/mm3 MPV 9.4 (7.4-10.4) fl Immature Gran % (Auto) 0.2 (0-0.5) % Neut % (Auto) 42.2 L (45.5-73.1) % Lymph % (Auto) 37.9 (18.3-44.2) % [place] % (Auto) 10.2 H (2.6-8.5) % Eos % (Auto) 8.8 H (0-4.4) % Baso % (Auto) 0.7 (0.2-1.2) % Lymph # (Auto) 1.63 (0.9-3.2) K/mm3 [place] # (Auto) 0.4 (0.1-0.6) K/mm3 Eos # (Auto) 0.4 H (0-0.3) K/mm3 Baso # (Auto) 0.0 (0.0-0.1) K/mm3 Abs Immat Gran (auto) 0.01 (0.00-0.031) K/mm3 Absolute Ne
[2020-11-04] MEDS: KETOROLAC 30 MG/ML VIAL (*BKC) IM (22:34)
== END 2020-11-04 22:57 | disposition home or self-care (01) ==
PROVIDERS: Emergency Provider Emergency Medicine; PCP Family Medicine
DX: R10.31 Right lower quadrant pain (principal); F17.200 Nicotine dependence, unspecified, uncomplicated
CPT/HCPCS: 36415; 74176; 80053; 83690; 85025; 96372; 99284; J1885

== ENCOUNTER 2020-11-08 04:45 | Emergency (ER) | payer OTHER, SELFPAY ==
[2020-11-08 04:58] VITALS: BP 123/83; PULSE 61; RESP 20; TEMP 36.6; O2SAT 100
--- NOTE | 2020-11-08 05:20 | ED.DENTAL ---
HPI - Dental/Oral General Chief complaint: Dental/Oral Stated complaint: Toothache Time Seen by Provider: 11/08/20 04:54 Source: RN notes reviewed History of Present Illness HPI Narrative: Patient presents to emergency department from home for dental pain. Patient states has been having pain in his left upper and lower molars for the past 1 week he was seen here on 03 November and at that time was started on antibiotics as well as ibuprofen and tramadol she is he woke approximate hour ago with severe pain in the left upper and lower tooth he states he tried taking ibuprofen and tramadol with minimal relief he denies any new trauma or injury states he has an appointment with a dentist today denies any fevers or chills ear pain or any other symptoms Related Data Allergies Allergy/AdvReac Type Severity Reaction Status Date / Time acetaminophen [From Tylenol] Allergy Swelling Verified 11/04/20 21:03 Review of Systems Review of Systems: Narrative: Gen.: Denies fevers or chills HEENT: See HPI Respiratory: Denies shortness of breath Abdomen: Denies abdominal pain nausea vomiting Neuro: Denies numbness, tingling, weakness Skin: Denies rash Endo: Denies DM PMFSH Past Medical History Medical History (Updated 11/08/20 @ 05:23 by Bayron Tovar DO) Healthy adult male Patient denies significant medical history Surgical History Surgical History No history of previous surgery Social History Social History Smoking status: Current every day smoker Gender identity (if verbalized by the patient): Male Exam Narrative: Exam Narrative: APPEARANCE: No acute distress, nontoxic, resting in bed HEENT: Normocephalic, atraumatic, TMs clear bilaterally, nares patent, oral mucosa moist, airway patent, tooth 16 and 17 are both carious and tender to palpation no erythema or fluctuance of the gum in this region no overlying swelling of the cheeks RESPIRATORY: No respiratory distress MUSCULOSKELETAl: Moves all extremities. NEURO: Awake and alert. Following commands, speech normal, no focal deficits SKIN:: Warm, dry. Normal Color PSYCHIATRIC: Normal affect/mood Course Course Emergency Course: Reviewed old records will give small amount of additional pain medication patient continued on his meds as he has disappointment today at 3 Patient took tramadol and ibuprofen approximate hour ago at home continues to have pain patient has both upper and lower pain and did not feel that doing double dental blocks is appropriate with patient having surgery later today patient is allergic to Tylenol so cannot give [place] will give small amount of oxycodone with patient previously taking tramadol will only give 2.5 mg Discussed with patient results of workup and diagnosis. Discussed need for follow-up with primary care, proper use of medication, and reasons to return to the emergency department. Patient understands and agrees to current treatment plan Vital Signs Vital signs: Vital Signs Temperature 97.9 F 11/08/20 04:58 Pulse Rate 61 11/08/20 04:58 Respiratory Rate 20 11/08/20 04:58 Blood Pressure 123/83 11/08/20 04:58 Pulse Oximetry 100 11/08/20 04:58 Temperature 97.9 F 11/08/20 04:58 Pulse Rate 61 11/08/20 04:58 Respiratory Rate 20 11/08/20 04:58 Blood Pressure 123/83 11/08/20 04:58 Pulse Oximetry 100 11/08/20 04:58 Discharge Plan Discharge Clinical Impression: Toothache Patient Disposition: Home, Self-Care Condition: Stable Instructions: Antibiotic Form, Toothache (ED) Additional Instructions: Return for increasing pain fever or any other symptoms or concern follow-up with your dentist at your scheduled appointment at 3 PM today for further treatment and evaluation Prescriptions: No Action ibuprofen 800 mg tablet 800 mg PO TID PRN (Reason: pain) Qty: 21 RF: 0 amoxicillin 875
[2020-11-08] MEDS: oxyCODONE HCL (*CRX) 2.5 MG TAB IR PO (05:35)
--- NOTE | 2020-11-08 05:52 | PC.NURSE ---
oxycodone 2.5mg pill unavailable in [facility] and hospital census too busy for pill to be obtained from pharmacy or for compounding pharmacy technician to bring to ED. Oxycodone 5 mg pill pulled from pyxis and cut in half with pill cutter. pt given 1/2, and remaining 1/2 wasted with ED charge rn. on discharge, pt unhappy with his dose of pain medication and requesting something else. attempted to educate pt on nonpharmacologic pain control methods, and need to call dentist this am when they open, or his pcp for pain control at home. pt and mother verbalized understanding, although pt cursing and visibly upset. ambulatory out of ed unassisted with steady, even, unassisted gait.
== END 2020-11-08 06:10 | disposition home or self-care (01) ==
PROVIDERS: Emergency Provider Emergency Medicine; PCP Family Medicine
DX: K08.89 Other specified disorders of teeth and supporting structures (principal); F17.200 Nicotine dependence, unspecified, uncomplicated
CPT/HCPCS: 99283; A9270

== ENCOUNTER 2021-03-17 06:30 | Emergency (ER) | payer OTHER, SELFPAY ==
[2021-03-17] VITALS (9 sets, daily range): BP systolic 107–137; BP diastolic 80–85; PULSE 60–79; RESP 12–20; TEMP 36.4; O2SAT 97–100
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
[2021-03-17] MEDS: KETOROLAC (*BKC) 60 MG/2 ML VIAL IM (07:29)
[2021-03-17] MEDS: ONDANSETRON HCL ODT 4 MG TABLET PO (07:30)
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
== END 2021-03-17 08:34 | disposition home or self-care (01) ==
PROVIDERS: Emergency Provider Emergency Medicine; PCP Family Medicine
DX: S06.0X9A Concussion with loss of consciousness of unspecified duration, initial encounter (principal); F17.200 Nicotine dependence, unspecified, uncomplicated; Y04.0XXA Assault by unarmed brawl or fight, initial encounter
CPT/HCPCS: 96372; 99283; A9270; J1885

== ENCOUNTER 2021-12-08 17:05 | Emergency (ER) | payer OTHER, SELFPAY ==
[2021-12-08] VITALS (8 sets, daily range): BP systolic 107–117; BP diastolic 64–84; PULSE 61–65; RESP 16–20; TEMP 36.4; O2SAT 94–100
[2021-12-08 18:17] LABS: Basophils Percent Auto 1.1 % (0.2-1.2); Eosinophils Absolute Auto 0.2 K/mm3 (0-0.3); Hematocrit 40.6 % (42.0-52.0); Hemoglobin 13.1 g/dL (14.0-18.0); Lymphocytes Absolute Auto 1.58 K/mm3 (0.9-3.2); Lymphocytes Percent Auto 44.1 % (18.3-44.2); Mean Corpuscular HGB Conc 32.3 g/dl (32-36); Mean Corpuscular Hemoglobin 28.8 pg (26-34); Mean Corpuscular Volume 89.2 fl (80-100); Mean Platelet Volume 9.5 fl (7.4-10.4); Monocytes Absolute Auto 0.3 K/mm3 (0.1-0.6); Monocytes Percent Auto 9.5 % (2.6-8.5); Neutrophils Absolute Auto 1.4 K/mm3 (1.3-6.7); Neutrophils Percent Auto 40.3 % (45.5-73.1); Platelet Count Result 234 k/mm3 (150-375); Red Blood Count 4.55 M/mm3 (4.6-6.20); Red Cell Distribution Width 13.4 % (11.5-14.5); White Blood Count 3.6 K/mm3 (4.5-10.0)
[2021-12-08 18:22] LABS: Alanine Aminotransferase 17 U/L (6-50); Albumin Level 4.6 g/dL (3.5-5.1); Alkaline Phosphatase 49 U/L (38-126); Anion Gap 8 mmol/L (8-16); Aspartate Amino Transferase 26 U/L (17-59); Bilirubin,Total 0.9 mg/dL (0.2-1.3); Blood Urea Nitrogen 7 mg/dL (9-20); Calcium 8.9 mg/dL (8.4-10.2); Carbon Dioxide 27 mmol/L (22-30); Chloride 106 mmol/L (98-107); Estimated CRCL calculation 133 ml/min; Estimated Glomerular Filt Rate > 60; Glucose 94 mg/dL (65-110); Potassium 4.1 mmol/L (3.4-5.0); Sodium 141 mmol/L (137-145)
--- NOTE | 2021-12-08 18:28 | ED.GENADULT ---
HPI - General Adult General Chief complaint: Abdominal Pain Stated complaint: my potassium is messed up. Time Seen by Provider: 12/08/21 18:10 History of Present Illness HPI narrative: this is a 31-year-old male with a history of cyclic vomiting presents ED with nausea vomiting abdominal pain. Patient believes that is due to low potassium. Patient uses marijuana daily basis. He is also describing diffuse crampy abdominal pain that is 10 on 10 in intensity and slowly getting better. He says he has 10+ episodes of this year. There are no exacerbating or alleviating factors. Related Data Allergies Allergy/AdvReac Type Severity Reaction Status Date / Time acetaminophen [From Tylenol] Allergy Swelling Verified 03/17/21 06:39 Review of Systems Review of Systems: CONSTITUTIONAL: Denies night sweats. EYES: No eye pain ENT: Denies rhinorrhea CARDIOVASCULAR: Denies palpitations RESPIRATORY: Denies hemoptysis GASTROINTESTINAL: Denies hematemesis GENITOURINARY: Denies hematuria. SKIN: Denies rash MUSCULOSKELETAL: Denies myalgia. NEUROLOGIC: Denies weakness. PSYCHIATRIC: Denies delusions PMFSH Past Medical History Medical History Cyclic vomiting syndrome Healthy adult male Patient denies significant medical history Surgical History Surgical History No history of previous surgery Social History Social History (Updated 12/08/21 @ 18:29 by Storm Blackwood MD) Social History: Daily marijuana user. Smoking status: Current every day smoker Gender identity (if verbalized by the patient): Male Sexual Orientation (if Verbalized by the Patient): Straight or Heterosexual Exam Narrative: APPEARANCE: No apparent distress. Head atraumatic. EYES: PERRLA/EOMI, NOSE: Normal no drainage NECK: Supple, Trachea midline RESPIRATORY: CTAB, No increased work of breathing. CARDIOVASCULAR: S1S2 appreciated ABDOMINAL: Soft, nontender, nondistended, MUSCULOSKELETAl: No obvious deformities NEURO: Alert. Moving 4/4 extremities SKIN:: Warm, dry. Normal color PSYCHIATRIC: Normal affect Course Vital Signs Vital signs: Vital Signs Temperature 97.6 F 12/08/21 17:13 Pulse Rate 61 12/08/21 17:13 Respiratory Rate 16 12/08/21 17:13 Blood Pressure 117/71 12/08/21 17:13 Pulse Oximetry 100 12/08/21 17:13 Temperature 97.6 F 12/08/21 17:13 Pulse Rate 65 12/08/21 19:15 Respiratory Rate 20 12/08/21 19:15 Blood Pressure 107/73 12/08/21 19:15 Pulse Oximetry 100 12/08/21 19:15 Medical Decision Making MDM Narrative Medical decision making narrative: This is a 31-year-old male presenting ED with nausea vomiting abdominal pain. He has 10+ visits here for cyclic vomiting. Patient needing 2 L of fluid, 5 mg of IM Haldol and basic abdominal level. Upon re-evaluation the patient is feeling better. His lab work is within acceptable levels. He is tolerating p.o.. He will be discharged home. He is instructed to stop using marijuana. Vital Signs Vital Signs: Vital Signs Temperature 97.6 F 12/08/21 17:13 Pulse Rate 61 12/08/21 17:13 Respiratory Rate 16 12/08/21 17:13 Blood Pressure 117/71 12/08/21 17:13 Pulse Oximetry 100 12/08/21 17:13 Temperature 97.6 F 12/08/21 17:13 Pulse Rate 65 12/08/21 19:15 Respiratory Rate 20 12/08/21 19:15 Blood Pressure 107/73 12/08/21 19:15 Pulse Oximetry 100 12/08/21 19:15 Lab Data Result diagrams: 12/08/21 18:06 12/08/21 18:06 Labs: Lab Results 12/08/21 12/08/21 12/08/21 Range/Units 18:05 18:06 18:06 WBC 3.6 L (4.5-10.0) K/mm3 RBC 4.55 L (4.6-6.20) M/mm3 Hgb 13.1 L (14.0-18.0) g/dL Hct 40.6 L (42.0-52.0) % MCV 89.2 (80-100) fl MCH 28.8 (26-34) pg MCHC 32.3 (32-36) g/dl RDW 13.4 (11.5-14.5) % Plt Count 234 (150-375) k/mm3 M
[2021-12-08 18:31] LABS: Lipase 56 U/L (23-300)
[2021-12-08] MEDS: FAMOTIDINE 20 MG/2 ML VIAL IV PUSH (19:06)
[2021-12-08] MEDS: HALOPERIDOL LACTATE 5 MG/ML VIAL IM (19:06)
[2021-12-08] MEDS: LACTATED RINGERS 2,000 ML 999 ML IV CONT (19:07)
--- NOTE | 2021-12-08 19:38 | PC.NURSE ---
Patient report given to GHAZALA Jon. All questions answered and care of patient transferred.
== END 2021-12-08 20:13 | disposition home or self-care (01) ==
LOC: ANHED 18:40
PROVIDERS: Emergency Provider Emergency Medicine; PCP Family Medicine
DX: R11.2 Nausea with vomiting, unspecified (principal); F12.90 Cannabis use, unspecified, uncomplicated
CPT/HCPCS: 36415; 80053; 83690; 85025; 96361; 96372; 96374; 99284; J1630; J7120

== ENCOUNTER 2021-12-09 21:38 | Emergency (ER) | payer OTHER, SELFPAY ==
[2021-12-09 21:53] VITALS: BP 142/98; PULSE 94; RESP 26; TEMP 36.7; O2SAT 100
[2021-12-09 22:09] VITALS: PULSE 106; RESP 17; O2SAT 92
--- NOTE | 2021-12-09 22:09 | ED.GENADULT ---
HPI - General Adult General Chief complaint: Recheck/Abnormal Lab/Rx Stated complaint: my body is locking up Time Seen by Provider: 12/09/21 22:06 History of Present Illness HPI narrative: 31-year-old male presents emergency room accompanied by his mother. He comes in secondary to feeling short of breath and having spasms and pain all over. Patient is hyperventilating at this time and having carpopedal spasms. He was just in emergency room yesterday. They states that his potassium was low which is what caused this however his potassium yesterday was noted to be normal. 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 He did have some vomiting earlier today. Related Data Allergies Allergy/AdvReac Type Severity Reaction Status Date / Time acetaminophen [From Tylenol] Allergy Severe Swelling Verified 12/09/21 21:57 of Lip/Tongue/Throat Review of Systems Review of Systems: CONSTITUTIONAL: Denies fever, chills, or sweats. EYES: Denies visual changes, redness, or discharge. ENT: Denies rhinorrhea, congestion, sore throat, or otalgia. CARDIOVASCULAR: Denies chest pain, palpitations, or edema. RESPIRATORY: Denies cough but noted to be hyperventilating and feels short of breath GASTROINTESTINAL: Denies abdominal pain. Has some vomiting earlier GENITOURINARY: Denies dysuria or hematuria. SKIN: Denies rash or itching. MUSCULOSKELETAL: Denies back pain, joint pain, or myalgia. Muscle spasms NEUROLOGIC: Denies headache, numbness, or weakness. PSYCHIATRIC: Denies anxiety or depression. [facility] Past Medical History Medical History Cyclic vomiting syndrome Healthy adult male Patient denies significant medical history Surgical History Surgical History No history of previous surgery Social History Social History Social History: Daily marijuana user. Smoking status: Current every day smoker Gender identity (if verbalized by the patient): Male Sexual Orientation (if Verbalized by the Patient): Straight or Heterosexual Exam Narrative: APPEARANCE: Extremely anxious at this time and hyperventilating Head Normocephalic and atraumatic. EYES: PERRLA/EOMI, conjunctivae clear. NOSE: Normal with no drainage EARS:TMS clear with [place], with good light reflex. THROAT: Pharynx clear, no exudate. NECK: Supple. No adenopathy, no masses. RESPIRATORY: Airway patent, respirations nonlabored. Clear to auscultation bilaterally, no rales, rhonchi, wheezing. CARDIOVASCULAR: Regular rate and rhythm without murmurs, rubs, or gallops. ABDOMINAL: Soft, nontender, nondistended, no hepatosplenomegaly Musculoskeletal: Moves all extremities. Strength/ROM intact, No edema, No calf tenderness. Hands are noted to be spasmed with carpopedal spasms noted NEURO: Alert. Cranial nerves II through XII intact. Normal gait. Good coordination. Nonfocal examination. SKIN:: Warm, dry. Normal Color PSYCHIATRIC: Normal affect/mood, normal interaction Course Vital Signs Vital signs: Vital Signs Temperature 98.1 F 12/09/21 21:53 Pulse Rate 94 12/09/21 21:53 Respiratory Rate 26 H 12/09/21 21:53 Blood Pressure 142/98 H 12/09/21 21:53 Pulse Oximetry 100 12/09/21 21:53 Oxygen Delivery Room Air 12/09/21 21:53 Temperature 98.1 F 12/09/21 21:53 Pulse Rate 73 12/09/21 22:31 Respiratory Rate 17 12/09/21 22:09 Blood Pressure 142/98 H 12/09/21 21:53 Pulse Oximetry 94 12/09/21 22:45 Oxygen Delivery Room Air 12/09/21 21:53 Medical Decision Making MDM Narrative Medical decision making narrative: Patient presentation was indicative of hyperventilation syndrome with carpopedal spasm. Patient was given IV Valium and reevaluate approximately 45 minutes later is back to his baseline status. Explained everything to him and his mo
--- NOTE | 2021-12-09 22:15 | PC.NURSE ---
Walked by patient room and say patient laying on the floor. i went into room and asked patient why he was on the floor. patient states he was cramping up and layed down on the floor . i asked patient if he fell and he denied falling. patient and family states patient layed himself down on the floor for comfort. stating it felt better than laying on the bed at that time.
[2021-12-09] MEDS: diazePAM INJ (*CRX) 10 MG/2 ML SYRINGE 5 MG IV PUSH (22:28)
[2021-12-09] MEDS: ONDANSETRON INJ 4 MG/2 ML VIAL IV PUSH (22:28)
[2021-12-09 22:31] VITALS: PULSE 73
[2021-12-09 22:45] VITALS: O2SAT 94
[2021-12-09 23:28] VITALS: BP 108/68; PULSE 68; RESP 18; O2SAT 100
== END 2021-12-09 23:29 | disposition home or self-care (01) ==
PROVIDERS: Emergency Provider Emergency Medicine; PCP Family Medicine
DX: F45.8 Other somatoform disorders (principal); F41.9 Anxiety disorder, unspecified; F17.200 Nicotine dependence, unspecified, uncomplicated
CPT/HCPCS: 96374; 96375; 99284; J2405; J3360